=== PATIENT | female | born 1955 | race Caucasian/White ===

== ENCOUNTER → 2016-08-07 | Outpatient (CLI) | payer OTHER ==
--- NOTE | ~2016-08-07 | MY11 ---
[facility]. [facility] A Service of [facility] RADIOLOGY TEXT RESULTS PATIENT: LOUIS HENDRIX LOCATION: [facility] : 54 UNIT #: [id number] AGE: [address]: Javid Rahman MD SEX: F ORDER DR: [id number] [address] [address] [id number] O MR#: [id number] Acc #: [id number] NAME: LOUIS HENDRIX. : 1955 SEX: F STUDY DATE/TIME: 08/07/2016 13:36 UNIT: [facility] ROOM: STUDY DESCRIPTION: MY Mammogram Screening Dig Alessandro Attending Physician: Javid Rahman M.D. Referring Physician: Javid Rahman M.D. Ordering Physician: Physician Non-Staff Primary Care Physician: Javid Rahman M.D. MEDICAL IMAGING REPORT This report is preliminary unless electronic signature is present. EXAM Bilateral digital screening mammogram with CAD DATE: 08/07/2016 HISTORY No documented personal or family history of breast cancer or current complaints. COMPARISON None. The patient states she does not recall where prior imaging studies may have been performed. No prior studies can be located at [facility] for comparison. Therefore, current study serves as a patient's new baseline exam. FINDINGS CC and MLO views were obtained of each breast utilizing digital technique and reviewed with an FDA-approved CAD device. Extremely dense fibroglandular tissue is present bilaterally which can limit sensitivity of mammography. Asymmetric increased density is demonstrated in the superior hemisphere right breast central third, with somewhat bilobed appearance extending nearly 3.5 cm craniocaudal. This region is also localized by CAD. Margins are largely obscured. Additionally, there is 9 mm grouping of coarse irregular calcifications in the 9 o'clock axis right breast nearly 6.5 cm deep to the nipple, without associated architectural distortion or mass lesion. There are scattered benign-appearing calcifications throughout both breasts elsewhere. No architectural distortion features are seen. No [facility]. [facility] A Service of [facility] RADIOLOGY TEXT RESULTS PATIENT: LOUIS HENDRIX LOCATION: [facility] : 54 UNIT #: [id number] AGE: [address]: Javid Rahman MD SEX: F ORDER DR: axillary adenopathy is identified. IMPRESSION 1. BIRADS 0. Additional imaging required. Focal asymmetry is demonstrate the superior hemisphere right breast central third measuring nearly 3.5 cm cranial caudally. Although there is no definite correlate on the CC view, it is thought most likely to be laterally positioned. A true lateral view of the right breast, extended craniocaudal lateral view of the right breast, and spot compression imaging in the MLO plane would be recommended. Alternatively, if the patient is able, diagnostic tomographic imaging of the right breast, which can be performed at [facility], may prove beneficial, given the patient's extreme breast parenchymal density. 2. Subcentimeter grouping of coarse calcifications in the 9 o'clock mid to posterior third of the right breast, for which additional spot magnification views are recommended. Patients over the age of 40 are entered into a reminder system with target due date for the next mammogram. A result letter will also be sent to the patient. BIRADS: 0 - incomplete. Need additional imaging evaluation and/or prior mammograms for comparison. Dictated by... Mona Soto M.D. THIS IS AN ELECTRONICALLY VERIFIED REPORT Mona Soto M.D. at 08/11/2016 7:11 AM KELBY/fadi TD: 08/10/2016 11:29 JOB #: [id number] MEDICAL IMAGING REPORT Page 1 of 1
== END | disposition home or self-care (01) ==
LOC: SMAM
DX: Z12.31 Encounter for screening mammogram for malignant neoplasm of breast (principal); R92.1 Mammographic calcification found on diagnostic imaging of breast
CPT/HCPCS: G0202

== ENCOUNTER → 2016-08-20 | Outpatient (CLI) | payer OTHER ==
--- NOTE | ~2016-08-20 | US24 ---
[facility] A Service of [facility] & [facility] RADIOLOGY TEXT RESULTS PATIENT: LOUIS HENDRIX LOCATION: [facility] : 54 UNIT #: [id number] AGE: [address]: Javid Rahman MD SEX: F ORDER DR: [id number] [facility] [address] [place], [place] [address] [id number] O MR#: [id number] Acc #: [id number] NAME: LOUIS HENDRIX. : 1955 SEX: F STUDY DATE/TIME: 08/20/2016 12:30 UNIT: [facility] ROOM: STUDY DESCRIPTION: US Breast Unilateral Attending Physician: Javid Rahmna M.D. Ordering Physician: Javid Rahman M.D. Primary Care Physician: Javid Rahman M.D. MEDICAL IMAGING REPORT This report is preliminary unless electronic signature is present EXAM Right breast ultrasound. INDICATION Increased density of the right breast. Ultrasound of the right breast was performed by the technologist and by me. Evaluated all the upper breast tissue, and there were 3 small periareolar nodules identified, suggesting papillomas. At 3 o'clock 1 cm from the nipple, there is a 5 mm nodule and at 11 o'clock, there are 2 adjacent nodules measuring 3 and 5 mm. These are all hypoechoic well-circumscribed nonshadowing nodules, and at least 1 may be within a duct. IMPRESSION 3 small nodules measuring up to 5 mm in diameter are identified in the retroareolar region. Given their size and location, they are likely papillomas. The patient denies any discharge. Recommend ultrasound-guided core biopsy or fine-needle aspiration, that were discussed with the patient. She states that she would discuss it with her physician, and I have also notified the breast care advocates. Patients over the age of 40 are entered into a reminder system with target due date for the next mammogram. A result letter will also be sent to the patient. BIRADS: 4 Suspicious abnormality; biopsy should be considered. Dictated by... Jimmy Ledezma M.D. THIS IS AN ELECTRONICALLY VERIFIED REPORT Jimmy Ledezma M.D. at 08/20/2016 3:23 PM JASPREET/tracy [facility] A Service of [facility] RADIOLOGY TEXT RESULTS PATIENT: LOUIS HENDRIX LOCATION: [facility] : 54 UNIT #: [id number] AGE: [address]: Javid Rahman MD SEX: F ORDER DR: TD: 08/20/2016 14:31 JOB #: [id number] MEDICAL IMAGING REPORT Page 1 of 1 COPY
--- NOTE | ~2016-08-20 | MY8 ---
[facility] A Service of [facility] & [facility] RADIOLOGY TEXT RESULTS PATIENT: LOUIS HENDRIX LOCATION: [facility] : 54 UNIT #: [id number] AGE: [address]: Javid Rahman MD SEX: F ORDER DR: [id number] [facility] [address] [facility] [place], [place] [address] [id number] O MR#: [id number] Acc #: [id number] NAME: LOUIS HENDRIX. : 1955 SEX: F STUDY DATE/TIME: 08/20/2016 12:05 UNIT: [facility] ROOM: STUDY DESCRIPTION: MY Mammogram Dx Dig Rt Attending Physician: Javid Rahman M.D. Ordering Physician: Javid Rahman M.D. Primary Care Physician: Javid Rahman M.D. MEDICAL IMAGING REPORT This report is preliminary unless electronic signature is present EXAM Right diagnostic mammogram INDICATIONS Asymmetric increased density upper right breast on MLO view of recent mammogram and numerous calcifications in right breast. COMPARISON STUDIES 08/10/2016. Patient states that her old mammograms before that 1 were at least 5 years ago and that the clinic is closed. She believes that the mammograms are unavailable. It [place] city. FINDINGS Today's exam includes spot magnification views in the CC and MLO projection as well as an exaggerated lateral CC view and a straight mediolateral view. On the additional mammographic images the somewhat lobular density suggested in the upper right breast seems to dissipate. This is also true on the compression images. The calcifications in question I think they are clearly benign. They are chunky enlarged and similar to those on the other side there are also numerous scattered calcifications throughout the dense parenchyma but these have a I think benign pattern. Ultrasound of the right breast was performed by myself and the technologist. I evaluated all of the breast tissue in the upper half of the breast and there is dense tissue throughout. Near the areola there are 3 solid nodules identified with two of them measuring 4 mm in size and the third one measuring 5 mm in size They are located at 11 o'clock and 3 o'clock IMPRESSION 1. Diagnostic mammogram and targeted ultrasound shows 3 small hypoechoic nonshadowing nodules measuring between 4 and 5 mm around the areola and given their size and location they likely represent papillomas. Maybe should be evaluated with biopsy and since they are very STS. [facility] A Service of [facility] & [facility] RADIOLOGY TEXT RESULTS PATIENT: LOUIS HENDRIX LOCATION: [facility] : 54 UNIT #: [id number] AGE: [address]: Javid Rahman MD SEX: F ORDER DR: superficial and right beneath the skin the radiologist performing the procedure might do a core biopsy and might do a fine needle aspiration. 2. I think the calcifications in the breast are benign and they are similar to those on the other side. 3. I discussed the findings with the patient. She did not wish to schedule the biopsy at this time. She is going to consult with her physician. I have notified the breast personal care worker of the findings will notify Dr. Rahman office as well. Patients over the age of 40 are entered into a reminder system with target due date for the next mammogram. A result letter will also be sent to the patient. BIRADS: 4. Suspicious abnormality; biopsy should be considered. Dictated by... Jimmy Ledezma M.D. THIS IS AN ELECTRONICALLY VERIFIED REPORT Jimmy Ledezma M.D. at 08/21/2016 7:09 AM JASPREET/mae TD: 08/20/2016 14:36 JOB #: [id number] MEDICAL IMAGING REPORT Page 1 of 1 COPY
== END | disposition home or self-care (01) ==
LOC: CMAM 11:55
DX: R92.8 Other abnormal and inconclusive findings on diagnostic imaging of breast (principal); N63 Unspecified lump in breast
CPT/HCPCS: 76641; G0206

== ENCOUNTER → 2016-09-16 | Outpatient (CLI) | payer OTHER ==
--- NOTE | ~2016-09-16 | CT71 ---
[facility] A Service of [facility] RADIOLOGY TEXT RESULTS PATIENT: LOUIS HENDRIX LOCATION: [facility] : 54 UNIT #: [id number] AGE: [address]: Javid Rahman MD SEX: F ORDER DR: [id number] [id number] [facility]. [place], [place] [address] [id number] O MR#: [id number] [facility] #: [id number] NAME: LOUIS HENDRIX. : 1955 SEX: F STUDY DATE/TIME: 09/16/2016 15:52 UNIT: [facility] ROOM: STUDY DESCRIPTION: CT Head Wo Contrast Attending Physician: Javid Rahman M.D. Referring Physician: Javid Rahman M.D. Ordering Physician: Javid Rahman M.D. Primary Care Physician: Javid Rahman M.D. MEDICAL IMAGING REPORT This report is preliminary unless electronic signature is present EXAM Head CT no contrast 09/16/2016 PROCEDURE Axial unenhanced head CT. This CT examination was performed with one or more of the following radiation dose reduction techniques: automatic exposure control, adjustment of mA and/or kV according to patient size, and iterative reconstruction. COMPARISON Prior head CT 08/18/2007. HISTORY Diffuse "all over" headaches for 2 months. 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 The brain is structurally normal and brain parenchymal density is normal. There is no intracranial hemorrhage and there is no hydrocephalus or extraaxial fluid collection. There is no mass. There is slight age-appropriate intracranial atherosclerotic vascular calcification, the extracranial soft tissues are unremarkable. IMPRESSION Normal negative unenhanced head CT. Dictated by... Shlomo Rankin M.D. THIS IS AN ELECTRONICALLY VERIFIED REPORT [facility] A Service of [facility] RADIOLOGY TEXT RESULTS PATIENT: LOUIS HENDRIX LOCATION: [facility] : 54 UNIT #: [id number] AGE: [address]: Javid Rahman MD SEX: F ORDER DR: Shlomo Rankin M.D. at 09/17/2016 1:47 PM PATRICE/charly TD: 09/17/2016 06:50 JOB #: [id number] MEDICAL IMAGING REPORT Page 1 of 1 COPY
--- NOTE | ~2016-09-16 | US200 ---
[facility] A Service of [facility] RADIOLOGY TEXT RESULTS PATIENT: LOUIS HENDRIX [facility] : 54 UNIT #: [id number] AGE: [address]: Javid Rahman MD SEX: F ORDER DR: [id number] [facility] [address] [place], [place] [address] [id number] O MR#: [id number] Acc #: [id number] NAME: LOUIS HENDRIX. : 1955 SEX: F STUDY DATE/TIME: 09/16/2016 13:59 UNIT: [facility] ROOM: STUDY DESCRIPTION: US Breast Guided Bx 1st Lesion Attending Physician: Javid Rahman M.D. Referring Physician: Javid Rahman M.D. Ordering Physician: Javid Rahman M.D. Primary Care Physician: Javid Rahman M.D. MEDICAL IMAGING REPORT This report is preliminary unless electronic signature is present REVISED REPORT EXAM Ultrasound-guided core biopsy DATE OF SERVICE 09/16/2016 INDICATIONS Breast masses. PROCEDURE Following discussion procedure include potential risk and benefit informed consent was obtained. The patient's questions were answered. Patient was brought to the ultrasound suite a call to order time-out was performed. Preliminary images were performed. Identifying the previously demonstrated masses on the 08/20/2016 ultrasound. Adequate skin entry sites were identified. Skin was prepped and draped using full sterile technique. Skin overlying soft tissues were anesthetized with buffered lidocaine. Under direct ultrasound guidance, core samples were obtained from the hypoechoic masses at the 3 o'clock and 11 o'clock positions. Two samples were obtained from these 2 lesions. Images were stored. Marker clips was replaced. The previously demonstrated possible lesion periareolar at the 11 o'clock position was not seen on real time imaging. This lesion was not biopsied. Post biopsy mammogram shows adequate clip placement. IMPRESSION 1. Ultrasound-guided core biopsy of 2 small hypoechoic breast masses, 1 at the 11 o'clock position and the other at the 3 o'clock position. No immediate complication. 2. A third possible lesion at the 11 o'clock position shown on the previous study did not clearly persist on real time imaging. [facility] A Service of [facility] RADIOLOGY TEXT RESULTS PATIENT: LOUIS HENDRIX LOCATION: [facility] : 54 UNIT #: [id number] AGE: [address]: Javid Rahman MD SEX: F ORDER DR: Recommend attention to this area on a 6-month followup targeted right breast ultrasound. Dictated by... Markel Ha M.D. THIS IS AN ELECTRONICALLY VERIFIED REPORT Markel Ha M.D. at 09/20/2016 10:06 PM GISSELL/mae TD: 09/20/2016 00:31 JOB #: [id number] See addendum EXAM Ultrasound-guided right breast core biopsy. DATE OF SERVICE 09/16/16 ADDENDUM Pathology is available and significant for no malignancy identified. Pathology is concordant with imaging features. Dictated by... Markel Ha M.D. THIS IS AN ELECTRONICALLY VERIFIED REPORT Markel Ha M.D. at 10/05/2016 7:11 AM GISSELL/carson TD: 10/01/2016 22:41 JOB #: [id number] MEDICAL IMAGING REPORT Page 1 of 1 COPY
== END | disposition home or self-care (01) ==
LOC: CCAT 13:00
DX: R51 Headache (principal); R92.8 Other abnormal and inconclusive findings on diagnostic imaging of breast; N63 Unspecified lump in breast
CPT/HCPCS: 70450; 88305; G0204